=== PATIENT | male | born 1995 | race Caucasian/White ===

== ENCOUNTER → 2017-03-01 | Outpatient (CLI) | payer OTHER ==
--- NOTE | 2017-03-01 16:10 | DIAGNOSTIC IMAGING REPORT ---
CT SCAN OF THE PARANASAL SINUSES CLINICAL HISTORY: Nasal congestion. Eustachian tube dysfunction. COMPARISON STUDY: No priors. TECHNIQUE: High-resolution CT scan of the paranasal sinuses is performed. Images are reviewed in the axial, sagittal, and coronal planes. IV contrast was not administered for this examination. The examination is performed using the fusion protocol. A dose lowering technique was utilized adhering to the principles of ALARA. CT DOSE: 663.30 mGy.cm FINDINGS: Maxillary antra: There are at least 3 small retention cysts within the maxillary antra bilaterally measuring up to 1.1 cm. Trace mucosal thickening is seen bilaterally. Anterior ethmoid sinuses: Clear. Posterior ethmoid sinuses: Clear. Sphenoid sinuses: Clear. Frontal sinuses: Clear. Ostiomeatal complexes: Patent bilaterally. Frontoethmoidal and sphenoethmoidal recesses: Patent bilaterally. Carotid arteries: The carotid arteries are covered and without septal attachments. Ethmoid roofs: There is slightly asymmetric elevation of the right ethmoid roof as compared to the left. Nasal turbinates: Normal in appearance. Nasal septum: There is mild rightward deviation of the bony nasal septum. Optic nerves: Covered. Orbits: The bony orbits are intact. Orbital contents are normal in appearance. Calvarium: The imaged calvarium is normal in appearance Mastoid air cells: Well pneumatized. Brain parenchyma: Partially visualized brain parenchyma is within normal limits. IMPRESSION: No significant paranasal sinus disease. See above. Electronically signed by: Pelon Diaz M.D. 03/01/2017 4:08 PM Dictated Date/Time: 03/01/2017 4:03 PM
== END | disposition home or self-care (01) ==
LOC: C.CTS 15:46
PROVIDERS: ATTEND Physician Assistant
DX: H69.80 Other specified disorders of Eustachian tube, unspecified ear (principal)